=== PATIENT | male | born 1935 | race Caucasian/White ===

== ENCOUNTER → 2016-10-23 | Outpatient (CLI) | payer OTHER ==
[~2016-10-23] MED LIST: ALLO300T PO; ASPI-496 PO; CEPH-376 PO; ERGO500017 PO; HYDR-3241 PO; LOSA50TA6 PO; LUTE20TA PO; OXYC1TAB7 PO; TERA10CA3 PO; benazepril PO
== END | disposition home or self-care (01) ==
LOC: CFH 08:38
PROVIDERS: ATTEND Internal Medicine Cardiovascular Disease
DX: I08.3 Combined rheumatic disorders of mitral, aortic and tricuspid valves (principal); I10 Essential (primary) hypertension; R94.31 Abnormal electrocardiogram [ECG] [EKG]; E78.2 Mixed hyperlipidemia
CPT/HCPCS: 93306

== ENCOUNTER 2017-03-01 03:44 | Emergency (ER) | payer OTHER ==
[~2017-03-01] VITALS: Ht 175.3 cm; Wt 107.1 kg
[2017-03-01 03:51] VITALS: BP 156/68
[2017-03-01] MEDS ORDERED: LUPRON DEPOT (04:00)
[2017-03-02] MEDS ORDERED: OXYC-302 PO (16:53)
== END 2017-03-01 05:42 | disposition home or self-care (01) ==
LOC: ED 05:36
DX: R33.9 Retention of urine, unspecified (principal); I10 Essential (primary) hypertension; E50.9 Vitamin A deficiency, unspecified; I50.9 Heart failure, unspecified; Z85.46 Personal history of malignant neoplasm of prostate
CPT/HCPCS: 99284

== ENCOUNTER 2017-03-02 10:16 | Emergency (ER) | payer OTHER ==
[~2017-03-02] VITALS: Ht 175.3 cm; Wt 107.3 kg
[~2017-03-02 10:16] MED LIST changes: +LUPRON DEPOT
[2017-03-02 10:20] VITALS: BP 164/69
[2017-03-02 11:46] LABS: MICROSCOPIC INDICATED
[2017-03-02 12:02] LABS: CULTURE INDICATED? YES
[2017-03-02] MEDS ORDERED: OXYC-302 PO (16:53)
== END 2017-03-02 12:56 | disposition home or self-care (01) ==
LOC: ED 12:36
DX: N30.00 Acute cystitis without hematuria (principal); C61 Malignant neoplasm of prostate; I10 Essential (primary) hypertension; Z87.891 Personal history of nicotine dependence
CPT/HCPCS: 51702; 81001; 87077; 87086; 87186

== ENCOUNTER → 2017-05-13 | Outpatient (CLI) | payer OTHER ==
[~2017-05-13] MED LIST changes: +OMNIPAQUE 350 MG/ML, 100ML BOTTLE ONE; +OXYC-302 PO
== END | disposition home or self-care (01) ==
LOC: CFH 13:06
PROVIDERS: ATTEND Urology
DX: N28.1 Cyst of kidney, acquired (principal); C61 Malignant neoplasm of prostate
CPT/HCPCS: 74177; 82565; Q9967

== ENCOUNTER 2017-08-29 07:43 | Day surgery (SDC) | payer OTHER ==
[~2017-08-29] VITALS: Ht 175.3 cm; Wt 97.1 kg
[~2017-08-29 07:43] MED LIST changes: -OMNIPAQUE 350 MG/ML, 100ML BOTTLE ONE
[2017-08-29] MEDS ORDERED: LIDOCAINE-MPF 2% ,5ML ONE ×2 (07:56→10:59)
[2017-08-29 08:22] VITALS: BP 138/70
[2017-08-29] MEDS ORDERED: SODIUM CHLORIDE 0.9% 1,000 ML IV SCH (08:30)
[2017-08-29] MEDS ORDERED: FENTANYL PF 100 MCG/2ML ONE (10:06)
[2017-08-29] MEDS ORDERED: NALOXONE 1 MG/ML, 2ML ONE (10:07)
[2017-08-29] MEDS ORDERED: MIDAZOLAM 1 MG/ML, 5ML ONE (10:07)
[2017-08-29] MEDS ORDERED: FLUMAZENIL 0.1 MG/1 ML, 5ML ONE (10:07)
== END 2017-08-29 12:45 ==
LOC: RAD 07:43
PROVIDERS: ATTEND Urology
DX: R33.9 Retention of urine, unspecified (principal); Z87.891 Personal history of nicotine dependence; Z88.6 Allergy status to analgesic agent; Z88.8 Allergy status to other drugs, medicaments and biological substances; Z98.890 Other specified postprocedural states; Z85.46 Personal history of malignant neoplasm of prostate
CPT/HCPCS: 51102; 75989; 99156; 99157; C1725; C1769; C1894; J2250; J3010; J3490; J2310

== ENCOUNTER 2017-09-01 10:26 | Emergency (ER) | payer OTHER ==
[~2017-09-01] VITALS: Ht 175.3 cm; Wt 97.2 kg
[2017-09-01 11:34] LABS: MICROSCOPIC AUTO
[2017-09-01 11:39] LABS: CULTURE INDICATED? YES
[2017-09-01 11:40] LABS: BASOPHILS # (AUTO) 0.08 x10^3/uL (0-0.1); BASOPHILS % (AUTO) 1 % (0-1); EOSINOPHILS # (AUTO) 0.12 x10^3/uL (0-0.4); EOSINOPHILS % (AUTO) 2 % (1-7); LYMPHOCYTES # (AUTO) 1.19 x10^3/uL (1-3.4); LYMPHOCYTES % (AUTO) 15 % (22-44); MD NO; MEAN CORPUSCULAR HEMOGLOBIN 28.8 pg (27.5-34.5); MEAN CORPUSCULAR HGB CONC 33.2 g/dL (33.2-36.2); MEAN CORPUSCULAR VOLUME 86.7 fL (81-97); MEAN PLATELET VOLUME 7.9 fL (7.4-10.4); MONOCYTES # (AUTO) 0.74 x10^3/uL (0.2-0.8); MONOCYTES % (AUTO) 9 % (2-9); NEUTROPHILS % (AUTO) 74 % (42-75); PLATELET COUNT 259 x10^3/uL (130-400); RED BLOOD COUNT 3.31 x10^6/uL (4.38-5.82); RED CELL DISTRIBUTION WIDTH 16.1 % (9.4-14.8)
[2017-09-01 11:47] LABS: ALBUMIN 3.1 g/dL (3.4-5.0); ANION GAP 7 mmol/L (5-15); CHLORIDE 106 mmol/L (98-107); CREATININE 1.15 mg/dL (0.7-1.3)
[2017-09-01 12:54] VITALS: BP 124/76
== END 2017-09-01 12:56 | disposition home or self-care (01) ==
LOC: ED 11:50
DX: N30.90 Cystitis, unspecified without hematuria (principal); I11.0 Hypertensive heart disease with heart failure; I50.9 Heart failure, unspecified
CPT/HCPCS: 36415; 80048; 81001; 82040; 85025; 87077; 87086; 87186; 99284

== ENCOUNTER 2017-10-06 19:36 | Emergency (ER) | payer OTHER ==
[~2017-10-06] VITALS: Ht 175.3 cm; Wt 95.0 kg
[2017-10-06 20:40] LABS: MICROSCOPIC INDICATED
[2017-10-06 20:41] LABS: CULTURE INDICATED? YES
[2017-10-06 21:01] VITALS: BP 145/81
== END 2017-10-06 21:03 | disposition home or self-care (01) ==
LOC: ED 20:03
DX: T83.098D Other mechanical complication of other urinary catheter, subsequent encounter (principal); I11.0 Hypertensive heart disease with heart failure; I50.9 Heart failure, unspecified; Z85.46 Personal history of malignant neoplasm of prostate
CPT/HCPCS: 81001; 87077; 87086; 87186; 99284

== ENCOUNTER 2017-11-01 16:46 | Inpatient (IN) | payer OTHER ==
[~2017-11-01] VITALS: Ht 175.3 cm; Wt 92.4 kg
[~2017-11-01 16:46] MED LIST changes: -LOSA50TA6 PO; +LOSA50TA7 PO
[2017-11-01 17:27] LABS: BASOPHILS # (AUTO) 0.05 x10^3/uL (0-0.1); BASOPHILS % (AUTO) 1 % (0-1); EOSINOPHILS # (AUTO) 0.09 x10^3/uL (0-0.4); EOSINOPHILS % (AUTO) 1 % (1-7); LYMPHOCYTES # (AUTO) 1.52 x10^3/uL (1-3.4); LYMPHOCYTES % (AUTO) 15 % (22-44); MD NO; MEAN CORPUSCULAR HEMOGLOBIN 30.2 pg (27.5-34.5); MEAN CORPUSCULAR HGB CONC 34.3 g/dL (33.2-36.2); MEAN CORPUSCULAR VOLUME 88.1 fL (81-97); MEAN PLATELET VOLUME 7.5 fL (7.4-10.4); MONOCYTES # (AUTO) 0.94 x10^3/uL (0.2-0.8); MONOCYTES % (AUTO) 9 % (2-9); NEUTROPHILS # (AUTO) 7.85 x10^3/uL (1.8-6.8); NEUTROPHILS % (AUTO) 75 % (42-75); PLATELET COUNT 246 x10^3/uL (130-400); RED BLOOD COUNT 3.06 x10^6/uL (4.38-5.82); RED CELL DISTRIBUTION WIDTH 19.2 % (9.4-14.8)
[2017-11-01 17:39] LABS: ALANINE AMINOTRANSFERASE 11 U/L (12-78); ALBUMIN 2.6 g/dL (3.4-5.0); ANION GAP 7 mmol/L (5-15); CALCIUM 8.4 mg/dL (8.5-10.1); CHLORIDE 102 mmol/L (98-107); CREATININE 1.13 mg/dL (0.7-1.3)
[2017-11-01 17:44] LABS: ALKALINE PHOSPHATASE 96 U/L (45-117); BILIRUBIN,TOTAL 0.7 mg/dL (0.2-1.0); TOTAL PROTEIN 6.2 g/dL (6.4-8.2); TROPONIN I < 0.015 ng/mL (0.000-0.045)
[2017-11-01] MEDS ORDERED: SODIUM CHLORIDE 0.9%, 500ML IVBOLUS ONE (18:00)
[2017-11-01] MEDS ORDERED: SODIUM CHLORIDE FLUSH 10ML SYR IVF ONE (18:30)
[2017-11-01] MEDS ORDERED: HYDR-3245 PO (19:18)
[2017-11-01] MEDS ORDERED: ABIR250T PO (19:19)
[2017-11-01] MEDS ORDERED: PRED5TAB PO (19:19)
[2017-11-01] MEDS ORDERED: AURYXIA PO (19:19)
[2017-11-01 19:58] LABS: CULTURE INDICATED? YES
[2017-11-01] MEDS ORDERED: LIDODERM 5% PATCH TD PRN (20:00)
[2017-11-01] MEDS ORDERED: ONDANSETRON ODT 4 MG PO PRN (20:00)
[2017-11-01] MEDS ORDERED: BISACODYL 10 MG SUPP PR PRN (20:00)
[2017-11-01] MEDS ORDERED: DOCUSATE 100 MG CAPSULE PO PRN (20:00)
[2017-11-01] MEDS ORDERED: POLYETHYLENE GLYCOL 17 GM PACKET PO PRN (20:00)
[2017-11-01] MEDS ORDERED: ONDANSETRON 2MG/ML, 2ML IVPush PRN (20:00)
[2017-11-01 20:05] LABS: MICROSCOPIC INDICATED
[2017-11-01] MEDS: AURYXIA 210 MG HOMEMEDPO SCH (21:00)
[2017-11-01 21:11] VITALS: BP 136/70
[2017-11-01 21:12] VITALS: BP 127/67
[2017-11-01 21:13] VITALS: BP 120/64
[2017-11-01] MEDS: TERAZOSIN 5MG CAPSULE PO SCH (22:29)
[2017-11-01] MEDS: HEPARIN 5,000 UNITS/ML, 1ML SQ SCH (22:30)
[2017-11-01] MEDS: SODIUM CHLORIDE 0.9% 1,000 ML IV SCH (22:30)
[2017-11-01] MEDS: HYDROcodone/APAP 5/325 TABLET PO PRN (22:30)
[2017-11-01] MEDS: LOSARTAN 50MG TABLET PO SCH (22:31)
[2017-11-01] MEDS: CEFTRIAXONE 1,000 MG in SODIUM CHLORIDE 0.9% 50 ML IV SCH (22:34)
[2017-11-02] VITALS: BP 136/70
[2017-11-02 03:56] VITALS: BP_SYST 110; BP_SYST 121; BP_DIAS 63
[2017-11-02 03:57] VITALS: BP 106/54
[2017-11-02] MEDS ORDERED: ACETAMINOPHEN 500 MG TABLET PO PRN (04:00)
[2017-11-02 05:13] LABS: BASOPHILS # (AUTO) 0.02 x10^3/uL (0-0.1); BASOPHILS % (AUTO) 0 % (0-1); EOSINOPHILS # (AUTO) 0.11 x10^3/uL (0-0.4); EOSINOPHILS % (AUTO) 1 % (1-7); LYMPHOCYTES # (AUTO) 1.25 x10^3/uL (1-3.4); LYMPHOCYTES % (AUTO) 14 % (22-44); MD NO; MEAN CORPUSCULAR HEMOGLOBIN 29.4 pg (27.5-34.5); MEAN CORPUSCULAR HGB CONC 33.4 g/dL (33.2-36.2); MEAN CORPUSCULAR VOLUME 88.2 fL (81-97); MEAN PLATELET VOLUME 7.8 fL (7.4-10.4); MONOCYTES # (AUTO) 1.01 x10^3/uL (0.2-0.8); MONOCYTES % (AUTO) 12 % (2-9); NEUTROPHILS # (AUTO) 6.33 x10^3/uL (1.8-6.8); NEUTROPHILS % (AUTO) 73 % (42-75); PLATELET COUNT 224 x10^3/uL (130-400); RED BLOOD COUNT 2.76 x10^6/uL (4.38-5.82)
[2017-11-02 05:26] LABS: ANION GAP 6 mmol/L (5-15); CALCIUM 8.3 mg/dL (8.5-10.1); CHLORIDE 103 mmol/L (98-107)
[2017-11-02 05:27] LABS: % IRON SATURATION 8 % (20-55); CREATININE 1.15 mg/dL (0.7-1.3); IRON LEVEL 13 mcg/dL (65-175); TOTAL IRON BINDING CAPACITY 167 mcg/dL (250-450)
[2017-11-02] MEDS: HEPARIN 5,000 UNITS/ML, 1ML SQ SCH ×3 (06:30→22:30)
[2017-11-02 06:39] VITALS: BP 138/68
[2017-11-02] MEDS: ALLOPURINOL 300 MG TABLET PO SCH (07:55)
[2017-11-02] MEDS: TEMPLATE NON-FORMULARY MED. (Abiraterone Acetate** (Zytiga**) 1,000 MG) HOMEMEDPO SCH (07:56)
[2017-11-02] MEDS: HYDROcodone/APAP 5/325 TABLET PO PRN ×2 (07:56→17:22)
[2017-11-02] MEDS: AURYXIA 210 MG HOMEMEDPO SCH ×3 (07:56→21:39)
[2017-11-02] MEDS ORDERED: TEMPLATE NON-FORMULARY MED. (Lutein** 20 MG) PO SCH (09:00)
[2017-11-02 09:55] LABS: TROPONIN I < 0.015 ng/mL (0.000-0.045)
[2017-11-02] MEDS ORDERED: REGADENOSON 0.4 MG/5 ML SYRINGE ONE (10:50)
[2017-11-02 12:32] VITALS: BP 127/68
[2017-11-02 20:50] VITALS: BP 126/62
[2017-11-02] MEDS: LOSARTAN 50MG TABLET PO SCH (21:40)
[2017-11-02] MEDS: SODIUM CHLORIDE 0.9% 1,000 ML IV SCH (21:41)
[2017-11-02] MEDS: TERAZOSIN 5MG CAPSULE PO SCH (21:41)
[2017-11-02] MEDS: CEFTRIAXONE 1,000 MG in SODIUM CHLORIDE 0.9% 50 ML IV SCH (21:44)
[2017-11-03] MEDS: HYDROcodone/APAP 5/325 TABLET PO PRN ×2 (01:00→08:17)
[2017-11-03 01:06] VITALS: BP 146/72
[2017-11-03] MEDS: HEPARIN 5,000 UNITS/ML, 1ML SQ SCH ×2 (05:45→14:30)
[2017-11-03] MEDS: AURYXIA 210 MG HOMEMEDPO SCH (07:39)
[2017-11-03] MEDS: TEMPLATE NON-FORMULARY MED. (Abiraterone Acetate** (Zytiga**) 1,000 MG) HOMEMEDPO SCH (07:39)
[2017-11-03 07:43] VITALS: BP 150/70
[2017-11-03] MEDS: ALLOPURINOL 300 MG TABLET PO SCH (08:17)
[2017-11-03 08:51] LABS: BASOPHILS # (AUTO) 0.02 x10^3/uL (0-0.1); BASOPHILS % (AUTO) 0 % (0-1); EOSINOPHILS # (AUTO) 0.16 x10^3/uL (0-0.4); EOSINOPHILS % (AUTO) 2 % (1-7); LYMPHOCYTES # (AUTO) 1.09 x10^3/uL (1-3.4); LYMPHOCYTES % (AUTO) 15 % (22-44); MD NO; MEAN CORPUSCULAR HEMOGLOBIN 29.5 pg (27.5-34.5); MEAN CORPUSCULAR HGB CONC 33.3 g/dL (33.2-36.2); MEAN CORPUSCULAR VOLUME 88.5 fL (81-97); MEAN PLATELET VOLUME 7.6 fL (7.4-10.4); MONOCYTES # (AUTO) 0.63 x10^3/uL (0.2-0.8); MONOCYTES % (AUTO) 9 % (2-9); NEUTROPHILS # (AUTO) 5.49 x10^3/uL (1.8-6.8); NEUTROPHILS % (AUTO) 74 % (42-75); PLATELET COUNT 241 x10^3/uL (130-400); RED BLOOD COUNT 3.03 x10^6/uL (4.38-5.82); RED CELL DISTRIBUTION WIDTH 19.2 % (9.4-14.8)
[2017-11-03] MEDS ORDERED: CEFD300C37 PO (11:41)
[2017-11-03 13:30] VITALS: BP 125/63
== END 2017-11-03 15:13 | disposition home or self-care (01) | DRG 698 ==
LOC: ED 19:03 → 5SO 19:39 → ED 20:26 → 5SO 20:34
PROVIDERS: ADMIT Family Medicine; ATTEND Family Medicine
PROC: 0T9B70Z Drainage of Bladder with Drainage Device, Via Natural or Artificial Opening (ICD-10-PCS; principal; 2017-11-01)
DX: T83.511A Infection and inflammatory reaction due to indwelling urethral catheter, initial encounter (principal); E43 Unspecified severe protein-calorie malnutrition; E87.1 Hypo-osmolality and hyponatremia; G89.29 Other chronic pain; E86.0 Dehydration; I11.0 Hypertensive heart disease with heart failure; I50.9 Heart failure, unspecified; K59.00 Constipation, unspecified; T45.1X5A Adverse effect of antineoplastic and immunosuppressive drugs, initial encounter; C61 Malignant neoplasm of prostate; E87.5 Hyperkalemia; M54.9 Dorsalgia, unspecified; D64.9 Anemia, unspecified; Y84.6 Urinary catheterization as the cause of abnormal reaction of the patient, or of later complication, without mention of misadventure at the time of the procedure; W18.39XA Other fall on same level, initial encounter; R55 Syncope and collapse; R07.89 Other chest pain; Y93.01 Activity, walking, marching and hiking; R53.81 Other malaise; Z88.0 Allergy status to penicillin; Z88.8 Allergy status to other drugs, medicaments and biological substances; Y99.8 Other external cause status; Y92.89 Other specified places as the place of occurrence of the external cause; Z85.46 Personal history of malignant neoplasm of prostate; Z87.440 Personal history of urinary (tract) infections
CPT/HCPCS: 36415; 71045; 78452; 80048; 80053; 81001; 82728; 83540; 83550; 83880; 84484; 85025; 87077; 87086; 87186; 93005; 93017; 93306; 96360; 99285; G0378; J0696; J1644; J2785; A9502; J7030; J7040; J7512

== ENCOUNTER 2017-11-19 08:37 | Inpatient (IN) | payer OTHER ==
[~2017-11-19] VITALS: Ht 175.3 cm; Wt 103.0 kg
[~2017-11-19 08:37] MED LIST changes: +ABIR250T PO; +AURYXIA PO; +CEFD300C37 PO; +HYDR-3245 PO; +PRED5TAB PO
[2017-11-19] MEDS ORDERED: SODIUM CHLORIDE 0.9%, 500ML IVBOLUS ONE (09:30)
[2017-11-19 09:39] LABS: BASOPHILS # (AUTO) 0.03 x10^3/uL (0-0.1); BASOPHILS % (AUTO) 0 % (0-1); EOSINOPHILS # (AUTO) 0.05 x10^3/uL (0-0.4); EOSINOPHILS % (AUTO) 0 % (1-7); LYMPHOCYTES # (AUTO) 0.56 x10^3/uL (1-3.4); LYMPHOCYTES % (AUTO) 5 % (22-44); MD NO; MEAN CORPUSCULAR HGB CONC 33.3 g/dL (33.2-36.2); MEAN CORPUSCULAR VOLUME 90.1 fL (81-97); MEAN PLATELET VOLUME 7.3 fL (7.4-10.4); MONOCYTES # (AUTO) 0.95 x10^3/uL (0.2-0.8); MONOCYTES % (AUTO) 8 % (2-9); NEUTROPHILS # (AUTO) 10.87 x10^3/uL (1.8-6.8); NEUTROPHILS % (AUTO) 87 % (42-75); PLATELET COUNT 256 x10^3/uL (130-400); RED BLOOD COUNT 2.95 x10^6/uL (4.38-5.82); RED CELL DISTRIBUTION WIDTH 18.3 % (9.4-14.8)
[2017-11-19 09:52] LABS: ALANINE AMINOTRANSFERASE 12 U/L (12-78); ALBUMIN 2.5 g/dL (3.4-5.0); ANION GAP 8 mmol/L (5-15); CALCIUM 8.5 mg/dL (8.5-10.1); CHLORIDE 106 mmol/L (98-107); CREATININE 1.79 mg/dL (0.7-1.3)
[2017-11-19 09:54] LABS: ALKALINE PHOSPHATASE 116 U/L (45-117); BILIRUBIN,TOTAL 0.8 mg/dL (0.2-1.0); TOTAL PROTEIN 6.1 g/dL (6.4-8.2)
[2017-11-19 10:31] LABS: MICROSCOPIC INDICATED
[2017-11-19 10:36] LABS: CULTURE INDICATED? YES
[2017-11-19] MEDS ORDERED: CEFTRIAXONE 1,000 MG IM ONE (11:30)
[2017-11-19] MEDS ORDERED: SODIUM CHLORIDE 0.9% 1,000 ML IV SCH (11:46)
[2017-11-19] MEDS ORDERED: hydrALAzine 20 MG/ML, 1ML IVPush PRN (12:00)
[2017-11-19] MEDS ORDERED: HEPARIN 5,000 UNITS/ML, 1ML SQ SCH (12:00)
[2017-11-19] MEDS ORDERED: BISACODYL 10 MG SUPP PR PRN (12:00)
[2017-11-19] MEDS ORDERED: POLYETHYLENE GLYCOL 17 GM PACKET PO PRN (12:00)
[2017-11-19 12:02] VITALS: BP 120/63
[2017-11-19] MEDS ORDERED: PLEASE ENTER WEIGHT MC SCH (12:30)
[2017-11-19] MEDS: SULFAMETH./TRIMETHOPRIM DS 800MG/160MG TABLET PO SCH ×2 (15:24→21:40)
[2017-11-19] MEDS: LINEZOLID 600 MG TABLET PO SCH ×2 (15:24→21:40)
[2017-11-19] MEDS: AURYXIA 210 MG PO SCH ×2 (16:00→21:00)
[2017-11-19] MEDS: ENOXAPARIN 100 MG/ML SQ SCH (17:20)
[2017-11-19] MEDS: HYDROcodone/APAP 10/325 MG TABLET PO PRN (18:01)
[2017-11-19 18:45] VITALS: BP 117/68
[2017-11-19] MEDS: LACTULOSE 10 GM/15 ML UDC PO SCH (21:39)
[2017-11-19] MEDS: TERAZOSIN 5MG CAPSULE PO SCH (21:39)
[2017-11-19] MEDS: LOSARTAN 50MG TABLET PO SCH (21:40)
[2017-11-20] VITALS (8 sets, daily range): BP systolic 95–120; BP diastolic 54–73
[2017-11-20] MEDS: HYDROcodone/APAP 10/325 MG TABLET PO PRN ×3 (04:48→17:40)
[2017-11-20] MEDS: ENOXAPARIN 100 MG/ML SQ SCH ×2 (04:52→17:17)
[2017-11-20 05:43] LABS: BASOPHILS # (AUTO) 0.02 x10^3/uL (0-0.1); BASOPHILS % (AUTO) 0 % (0-1); EOSINOPHILS # (AUTO) 0.04 x10^3/uL (0-0.4); EOSINOPHILS % (AUTO) 0 % (1-7); LYMPHOCYTES # (AUTO) 0.92 x10^3/uL (1-3.4); LYMPHOCYTES % (AUTO) 8 % (22-44); MD NO; MEAN CORPUSCULAR HEMOGLOBIN 29.9 pg (27.5-34.5); MEAN CORPUSCULAR HGB CONC 33.4 g/dL (33.2-36.2); MEAN CORPUSCULAR VOLUME 89.5 fL (81-97); MEAN PLATELET VOLUME 7.4 fL (7.4-10.4); MONOCYTES # (AUTO) 1.01 x10^3/uL (0.2-0.8); MONOCYTES % (AUTO) 9 % (2-9); NEUTROPHILS # (AUTO) 9.31 x10^3/uL (1.8-6.8); NEUTROPHILS % (AUTO) 82 % (42-75); PLATELET COUNT 233 x10^3/uL (130-400); RED BLOOD COUNT 2.57 x10^6/uL (4.38-5.82); RED CELL DISTRIBUTION WIDTH 18.5 % (9.4-14.8)
[2017-11-20 05:51] LABS: CHLORIDE 106 mmol/L (98-107)
[2017-11-20 05:59] LABS: ALANINE AMINOTRANSFERASE 10 U/L (12-78); ALBUMIN 2.2 g/dL (3.4-5.0); ALKALINE PHOSPHATASE 104 U/L (45-117); ANION GAP 12 mmol/L (5-15); BILIRUBIN,TOTAL 0.5 mg/dL (0.2-1.0); CALCIUM 8.3 mg/dL (8.5-10.1); CREATININE 1.77 mg/dL (0.7-1.3); TOTAL PROTEIN 5.9 g/dL (6.4-8.2)
[2017-11-20] MEDS ORDERED: PANTOPRAZOLE 40 MG IV IVPush SCH (07:30)
[2017-11-20] MEDS: PANTOPROZOLE 40MG TABLET PO SCH (08:15)
[2017-11-20] MEDS: AURYXIA 210 MG PO SCH ×3 (08:15→21:00)
[2017-11-20] MEDS: TEMPLATE NON-FORMULARY MED. (Abiraterone Acetate** (Zytiga**) 1,000 MG) PO SCH (08:15)
[2017-11-20] MEDS: LINEZOLID 600 MG TABLET PO SCH ×2 (08:16→19:47)
[2017-11-20] MEDS: LACTULOSE 10 GM/15 ML UDC PO SCH ×2 (08:16→19:47)
[2017-11-20] MEDS: SULFAMETH./TRIMETHOPRIM DS 800MG/160MG TABLET PO SCH ×2 (08:16→19:47)
[2017-11-20] MEDS: SENNA/DOCUSATE TABLET PO SCH (08:16)
[2017-11-20] MEDS ORDERED: TEMPLATE NON-FORMULARY MED. (Lutein** 20 MG) PO SCH (09:00)
[2017-11-20] MEDS: SODIUM CHLORIDE 0.9% 1,000 ML IV SCH (10:33)
[2017-11-20] MEDS ORDERED: SODIUM CHLORIDE 0.9% 1,000 ML IV SCH (11:46)
[2017-11-20] MEDS: TERAZOSIN 5MG CAPSULE PO SCH (19:47)
[2017-11-20] MEDS: LOSARTAN 50MG TABLET PO SCH (19:47)
[2017-11-21 01:57] VITALS: BP 130/70
[2017-11-21] MEDS: HYDROcodone/APAP 10/325 MG TABLET PO PRN ×4 (01:59→21:02)
[2017-11-21] MEDS: SODIUM CHLORIDE 0.9% 1,000 ML IV SCH ×2 (02:00→12:27)
[2017-11-21 02:26] VITALS: BP 123/64
[2017-11-21 04:40] LABS: BASOPHILS # (AUTO) 0.02 x10^3/uL (0-0.1); BASOPHILS % (AUTO) 0 % (0-1); EOSINOPHILS # (AUTO) 0.11 x10^3/uL (0-0.4); EOSINOPHILS % (AUTO) 1 % (1-7); LYMPHOCYTES # (AUTO) 0.72 x10^3/uL (1-3.4); LYMPHOCYTES % (AUTO) 8 % (22-44); MD NO; MEAN CORPUSCULAR HEMOGLOBIN 29.9 pg (27.5-34.5); MEAN CORPUSCULAR HGB CONC 33.3 g/dL (33.2-36.2); MEAN CORPUSCULAR VOLUME 89.9 fL (81-97); MONOCYTES # (AUTO) 0.79 x10^3/uL (0.2-0.8); MONOCYTES % (AUTO) 8 % (2-9); NEUTROPHILS # (AUTO) 7.96 x10^3/uL (1.8-6.8); NEUTROPHILS % (AUTO) 83 % (42-75); PLATELET COUNT 211 x10^3/uL (130-400); RED BLOOD COUNT 2.62 x10^6/uL (4.38-5.82); RED CELL DISTRIBUTION WIDTH 18.1 % (9.4-14.8)
[2017-11-21 04:51] LABS: ALBUMIN 2.1 g/dL (3.4-5.0); ANION GAP 8 mmol/L (5-15); CALCIUM 8.3 mg/dL (8.5-10.1); CHLORIDE 110 mmol/L (98-107)
[2017-11-21] MEDS: ENOXAPARIN 100 MG/ML SQ SCH ×2 (04:54→18:01)
[2017-11-21 04:55] LABS: ALANINE AMINOTRANSFERASE 9 U/L (12-78); ALKALINE PHOSPHATASE 97 U/L (45-117); BILIRUBIN,TOTAL 0.5 mg/dL (0.2-1.0); CREATININE 1.86 mg/dL (0.7-1.3); TOTAL PROTEIN 5.7 g/dL (6.4-8.2)
[2017-11-21] MEDS: MORPHINE SULFATE 4 MG/ML, 1ML IV PRN ×2 (04:59→12:35)
[2017-11-21] MEDS: PANTOPROZOLE 40MG TABLET PO SCH (07:54)
[2017-11-21] MEDS: LINEZOLID 600 MG TABLET PO SCH ×2 (07:54→21:02)
[2017-11-21] MEDS: LACTULOSE 10 GM/15 ML UDC PO SCH ×2 (07:54→21:04)
[2017-11-21] MEDS: SULFAMETH./TRIMETHOPRIM DS 800MG/160MG TABLET PO SCH ×2 (07:54→21:02)
[2017-11-21] MEDS: SENNA/DOCUSATE TABLET PO SCH (07:55)
[2017-11-21] MEDS: TEMPLATE NON-FORMULARY MED. (Abiraterone Acetate** (Zytiga**) 1,000 MG) PO SCH (08:00)
[2017-11-21] MEDS: AURYXIA 210 MG PO SCH ×3 (08:00→21:04)
[2017-11-21 08:27] VITALS: BP 153/72
[2017-11-21 12:29] VITALS: BP 144/70
[2017-11-21 20:27] VITALS: BP 129/66
[2017-11-21] MEDS: TERAZOSIN 5MG CAPSULE PO SCH (21:03)
[2017-11-21] MEDS: LOSARTAN 50MG TABLET PO SCH (21:04)
[2017-11-22 03:04] VITALS: BP 113/69
[2017-11-22] MEDS: MORPHINE SULFATE 4 MG/ML, 1ML IV PRN ×3 (04:19→16:25)
[2017-11-22] MEDS: HYDROcodone/APAP 10/325 MG TABLET PO PRN ×2 (05:14→15:32)
[2017-11-22] MEDS: TEMPLATE NON-FORMULARY MED. (Abiraterone Acetate** (Zytiga**) 1,000 MG) HOMEMEDPO SCH ×2 (05:15→09:00)
[2017-11-22] MEDS: ENOXAPARIN 100 MG/ML SQ SCH (05:16)
[2017-11-22 06:27] LABS: MD YES; MEAN CORPUSCULAR HEMOGLOBIN 30.1 pg (27.5-34.5); MEAN CORPUSCULAR HGB CONC 33.4 g/dL (33.2-36.2); MEAN CORPUSCULAR VOLUME 90.1 fL (81-97); MEAN PLATELET VOLUME 7.1 fL (7.4-10.4); PLATELET COUNT 219 x10^3/uL (130-400); RED BLOOD COUNT 2.62 x10^6/uL (4.38-5.82); RED CELL DISTRIBUTION WIDTH 18.1 % (9.4-14.8)
[2017-11-22 06:36] LABS: ANION GAP 9 mmol/L (5-15); CALCIUM 8.2 mg/dL (8.5-10.1); CHLORIDE 110 mmol/L (98-107); CREATININE 1.61 mg/dL (0.7-1.3)
[2017-11-22 06:47] VITALS: BP_SYST 106; BP_DIAS 59; BP_DIAS 61
[2017-11-22 07:17] LABS: BASOS#(MANUAL) 0.07 x10^3/uL (0-0.1); BASOS% (MANUAL) 1 % (0-1); EOS#(MANUAL) 0.07 x10^3/uL (0.0-0.4); EOS% (MANUAL) 1 % (1-7); LYMPH#(MANUAL) 0.51 x10^3/uL (1-3.4); LYMPHS% (MANUAL) 7 % (22-44); MONOS#(MANUAL) 0.58 x10^3/uL (0.3-2.7); MONOS% (MANUAL) 8 % (2-9); SEG#(MANUAL) 6.06 x10^3/uL (1.8-6.8); SEGS% (MANUAL) 83 % (42-75)
[2017-11-22 07:18] LABS: <PLATELET ESTIMATE> ADEQUATE; <PLT MORPHOLOGY> NORMAL PLT MORPH; ANISOCYTOSIS 1+; OVALOCYTES 1+
[2017-11-22 07:19] LABS: TOXIC GRAN 1+
[2017-11-22] MEDS: AURYXIA 210 MG PO SCH ×2 (09:00→15:31)
[2017-11-22] MEDS: LINEZOLID 600 MG TABLET PO SCH (09:47)
[2017-11-22] MEDS: SENNA/DOCUSATE TABLET PO SCH (09:47)
[2017-11-22] MEDS: SULFAMETH./TRIMETHOPRIM DS 800MG/160MG TABLET PO SCH (09:47)
[2017-11-22] MEDS: PANTOPROZOLE 40MG TABLET PO SCH (09:47)
[2017-11-22] MEDS: LACTULOSE 10 GM/15 ML UDC PO SCH (09:47)
[2017-11-22] MEDS ORDERED: SODIUM CHLORIDE 0.9% 1,000 ML IV SCH (11:46)
[2017-11-22 12:52] VITALS: BP 135/71
[2017-11-22 13:59] VITALS: BP 133/67
[2017-11-22 14:18] VITALS: BP 145/73
[2017-11-22 16:17] VITALS: BP 125/66
[2017-11-22] MEDS ORDERED: APIXABAN 5 MG TABLET PO SCH (21:00)
== END 2017-11-22 17:00 | DRG 698 ==
LOC: ED 10:43 → EDIP 11:05 → 3NE 11:50 → 3NW 11-20 17:29
PROVIDERS: ADMIT Family Medicine; ATTEND Family Medicine
PROC: 30233N1 Transfusion of Nonautologous Red Blood Cells into Peripheral Vein, Percutaneous Approach (ICD-10-PCS; principal; 2017-11-20)
DX: T83.518A Infection and inflammatory reaction due to other urinary catheter, initial encounter (principal); G93.41 Metabolic encephalopathy; N17.9 Acute kidney failure, unspecified; C79.51 Secondary malignant neoplasm of bone; N39.0 Urinary tract infection, site not specified; I82.412 Acute embolism and thrombosis of left femoral vein; C61 Malignant neoplasm of prostate; D63.8 Anemia in other chronic diseases classified elsewhere; Z87.440 Personal history of urinary (tract) infections; I50.9 Heart failure, unspecified; N13.9 Obstructive and reflux uropathy, unspecified; Y84.6 Urinary catheterization as the cause of abnormal reaction of the patient, or of later complication, without mention of misadventure at the time of the procedure; Y92.89 Other specified places as the place of occurrence of the external cause; D50.9 Iron deficiency anemia, unspecified; E78.5 Hyperlipidemia, unspecified; E86.0 Dehydration; E86.1 Hypovolemia; G89.29 Other chronic pain; I11.0 Hypertensive heart disease with heart failure; Z80.9 Family history of malignant neoplasm, unspecified; Z82.49 Family history of ischemic heart disease and other diseases of the circulatory system; Z51.5 Encounter for palliative care; Z66 Do not resuscitate; Z74.01 Bed confinement status; Z88.0 Allergy status to penicillin; Z96.659 Presence of unspecified artificial knee joint; Z88.6 Allergy status to analgesic agent; B95.2 Enterococcus as the cause of diseases classified elsewhere; R10.9 Unspecified abdominal pain
CPT/HCPCS: 36415; 71045; 76705; 76770; 80048; 80053; 81001; 83605; 85025; 86850; 86870; 86900; 86922; 86923; 87086; 93005; 93970; 99285; G0378; J1644; J1650; J7030; J7040; J7512; P9016

== ENCOUNTER 2017-12-12 03:15 | Inpatient (IN) | payer OTHER ==
[~2017-12-12] VITALS: Ht 175.3 cm; Wt 102.9 kg
[2017-12-12] MEDS ORDERED: MORPHINE SULFATE 4 MG/ML, 1ML ONE ×2 (03:59→04:55)
[2017-12-12] MEDS ORDERED: SODIUM CHLORIDE FLUSH 10ML SYR IVF ONE (04:00)
[2017-12-12] MEDS: MORPHINE SULFATE 4 MG/ML, 1ML IVPush PRN ×4 (04:07→12:27)
[2017-12-12 04:16] LABS: BASOPHILS % (AUTO) 0 % (0-1); EOSINOPHILS % (AUTO) 0 % (1-7); LYMPHOCYTES # (AUTO) 0.48 x10^3/uL (1-3.4); LYMPHOCYTES % (AUTO) 4 % (22-44); MD NO; MEAN CORPUSCULAR HEMOGLOBIN 29.5 pg (27.5-34.5); MEAN CORPUSCULAR VOLUME 89.4 fL (81-97); MEAN PLATELET VOLUME 7.6 fL (7.4-10.4); MONOCYTES # (AUTO) 0.88 x10^3/uL (0.2-0.8); MONOCYTES % (AUTO) 7 % (2-9); NEUTROPHILS % (AUTO) 90 % (42-75); PLATELET COUNT 371 x10^3/uL (130-400); RED BLOOD COUNT 2.88 x10^6/uL (4.38-5.82); RED CELL DISTRIBUTION WIDTH 17.2 % (9.4-14.8)
[2017-12-12 04:24] LABS: INTERNATIONAL NORMALIZED RATIO 1.11 (0.93-1.1); PROTHROMBIN TIME 11.4 Seconds (9.6-11.5)
[2017-12-12 04:33] LABS: ALBUMIN 2.5 g/dL (3.4-5.0); ANION GAP 7 mmol/L (5-15); CALCIUM 9.3 mg/dL (8.5-10.1); CHLORIDE 104 mmol/L (98-107)
[2017-12-12 04:37] LABS: ALANINE AMINOTRANSFERASE 15 U/L (12-78); ALKALINE PHOSPHATASE 109 U/L (45-117); BILIRUBIN,TOTAL 0.3 mg/dL (0.2-1.0); CREATININE 1.93 mg/dL (0.7-1.3); TOTAL PROTEIN 6.9 g/dL (6.4-8.2)
[2017-12-12] MEDS ORDERED: APIX5TAB PO (05:06)
[2017-12-12] MEDS ORDERED: DICL100T PO (05:06)
[2017-12-12] MEDS ORDERED: SODIUM CHLORIDE 0.9% 1,000 ML IV ONE (05:36)
[2017-12-12] MEDS ORDERED: ONDANSETRON 2MG/ML, 2ML IVPush PRN ×2 (06:00→06:30)
[2017-12-12] MEDS: SODIUM CHLORIDE 0.9% 1,000 ML IV SCH ×2 (06:17→16:17)
[2017-12-12] MEDS ORDERED: BISACODYL 10 MG SUPP PR PRN (06:30)
[2017-12-12] MEDS ORDERED: POLYETHYLENE GLYCOL 17 GM PACKET PO PRN (06:30)
[2017-12-12] MEDS ORDERED: ONDANSETRON ODT 4 MG PO PRN (06:30)
[2017-12-12] MEDS ORDERED: ENALAPRILAT 1.25 MG/ML, 2ML IVPush PRN (06:30)
[2017-12-12] MEDS ORDERED: ACETAMINOPHEN 325 MG TABLET PO PRN (06:30)
[2017-12-12] MEDS: SENNA/DOCUSATE TABLET PO SCH (09:00)
[2017-12-12] MEDS: ABIRATERONE ACETATE 1000 MG PO SCH (09:00)
[2017-12-12] MEDS: ALLOPURINOL 300 MG TABLET PO SCH (09:00)
[2017-12-12 13:12] VITALS: BP 113/58
[2017-12-12] MEDS ORDERED: FENTANYL PF 100 MCG/2ML ONE ×3 (14:37→17:15)
[2017-12-12] MEDS ORDERED: NEOSPORIN OINT, 15GM ONE (14:43)
[2017-12-12] MEDS ORDERED: HYDROCORTISONE 100 MG INJ. ONE (14:56)
[2017-12-12] MEDS ORDERED: CLINDAMYCIN 150 MG/ML, 6ML ONE (14:56)
[2017-12-12] MEDS ORDERED: hydrALAzine 20 MG/ML, 1ML IV PRN (15:00)
[2017-12-12] MEDS ORDERED: MEPERIDINE/PF 25MG/0.5ML IVPush PRN (15:00)
[2017-12-12] MEDS ORDERED: OXYcodone 5 MG/5 ML ORAL.SOL UDC PO PRN (15:00)
[2017-12-12] MEDS ORDERED: PROCHLORPERAZINE 5 MG/ML, 2ML IV PRN (15:00)
[2017-12-12] MEDS ORDERED: LABETALOL 5MG/ML, 20ML IV PRN (15:00)
[2017-12-12] MEDS ORDERED: PHENYLEPHRINE 10 MG/ML ONE (15:28)
[2017-12-12] MEDS ORDERED: ROCURONIUM 10MG/ML,5ML ONE (15:28)
[2017-12-12] MEDS ORDERED: SUCCINYLCHOLINE 20 MG/ML, 10ML ONE (15:28)
[2017-12-12] MEDS ORDERED: ONDANSETRON 2MG/ML, 2ML ONE (15:28)
[2017-12-12] MEDS ORDERED: EPHEDRINE 50 MG/ML, 1ML ONE (15:28)
[2017-12-12] MEDS ORDERED: SUGAMMADEX 200 MG/2 ML IVPush ONE (15:28)
[2017-12-12] MEDS ORDERED: CEFAZOLIN PMX 1GM/50ML 50 ML IV SCH (16:30)
[2017-12-12] MEDS ORDERED: OXYcodone 5 MG/5 ML ORAL.SOL UDC ONE (16:34)
[2017-12-12] MEDS: FENTANYL PF 100 MCG/2ML IV PRN ×4 (16:37→17:34)
[2017-12-12] MEDS ORDERED: HYDROmorphone 2 MG/ML, 1ML ONE ×2 (16:45→17:15)
[2017-12-12] MEDS: HYDROmorphone 1 MG/ML, 1ML IV PRN ×4 (16:47→17:14)
[2017-12-12] MEDS ORDERED: METHADONE INTENSOL 10 MG/ML ORAL CONC PO ONE (17:30)
[2017-12-12 18:27] VITALS: BP 94/58
[2017-12-12] MEDS: HYDROcodone/APAP 5/325 TABLET PO PRN (20:56)
[2017-12-12] MEDS: TERAZOSIN 5MG CAPSULE PO SCH (21:00)
[2017-12-12] MEDS: LOSARTAN 50MG TABLET PO SCH (21:00)
[2017-12-12 22:24] VITALS: BP 95/56
[2017-12-12 22:37] VITALS: BP 93/55
[2017-12-13] VITALS (10 sets, daily range): BP systolic 93–124; BP diastolic 46–71
[2017-12-13] MEDS: CLINDAMYCIN PMX 300MG/50ML 50 ML IV SCH ×2 (01:08→08:52)
[2017-12-13] MEDS: SODIUM CHLORIDE 0.9% 1,000 ML IV SCH ×2 (01:16→12:55)
[2017-12-13 05:18] LABS: MEAN CORPUSCULAR HGB CONC 32.8 g/dL (33.2-36.2); MEAN CORPUSCULAR VOLUME 91.5 fL (81-97); MEAN PLATELET VOLUME 7.7 fL (7.4-10.4); PLATELET COUNT 276 x10^3/uL (130-400); RED BLOOD COUNT 2.39 x10^6/uL (4.38-5.82); RED CELL DISTRIBUTION WIDTH 17.4 % (9.4-14.8)
[2017-12-13 05:20] LABS: ANION GAP 7 mmol/L (5-15); CALCIUM 8.6 mg/dL (8.5-10.1); CHLORIDE 107 mmol/L (98-107)
[2017-12-13] MEDS: HYDROcodone/APAP 5/325 TABLET PO PRN ×5 (05:23→23:52)
[2017-12-13 06:01] LABS: BASOPHILS # (AUTO) 0.01 x10^3/uL (0-0.1); BASOPHILS % (AUTO) 0 % (0-1); EOSINOPHILS % (AUTO) 0 % (1-7); LYMPHOCYTES # (AUTO) 0.68 x10^3/uL (1-3.4); LYMPHOCYTES % (AUTO) 6 % (22-44); MD SCAN; MONOCYTES # (AUTO) 0.86 x10^3/uL (0.2-0.8); MONOCYTES % (AUTO) 7 % (2-9); NEUTROPHILS # (AUTO) 10.93 x10^3/uL (1.8-6.8); NEUTROPHILS % (AUTO) 88 % (42-75)
[2017-12-13] MEDS: ALLOPURINOL 300 MG TABLET PO SCH (08:36)
[2017-12-13] MEDS: SENNA/DOCUSATE TABLET PO SCH (08:37)
[2017-12-13] MEDS: ABIRATERONE ACETATE 1000 MG PO SCH ×2 (08:53→11:09)
[2017-12-13] MEDS: APIXABAN 2.5 MG TABLET PO SCH ×2 (11:30→19:59)
[2017-12-13 15:13] LABS: CULTURE INDICATED? YES; MICROSCOPIC INDICATED
[2017-12-13 18:43] LABS: MD NO
[2017-12-13 18:47] LABS: ANION GAP 8 mmol/L (5-15); CALCIUM 8.4 mg/dL (8.5-10.1); CHLORIDE 104 mmol/L (98-107); CREATININE 1.86 mg/dL (0.7-1.3)
[2017-12-13 18:48] LABS: BASOPHILS # (AUTO) 0.03 x10^3/uL (0-0.1); BASOPHILS % (AUTO) 0 % (0-1); EOSINOPHILS # (AUTO) 0.01 x10^3/uL (0-0.4); EOSINOPHILS % (AUTO) 0 % (1-7); LYMPHOCYTES # (AUTO) 0.63 x10^3/uL (1-3.4); LYMPHOCYTES % (AUTO) 4 % (22-44); MEAN CORPUSCULAR HEMOGLOBIN 30.8 pg (27.5-34.5); MEAN CORPUSCULAR HGB CONC 33.7 g/dL (33.2-36.2); MEAN CORPUSCULAR VOLUME 91.3 fL (81-97); MEAN PLATELET VOLUME 7.5 fL (7.4-10.4); MONOCYTES % (AUTO) 7 % (2-9); NEUTROPHILS # (AUTO) 13.66 x10^3/uL (1.8-6.8); NEUTROPHILS % (AUTO) 89 % (42-75); PLATELET COUNT 280 x10^3/uL (130-400); RED BLOOD COUNT 2.67 x10^6/uL (4.38-5.82); RED CELL DISTRIBUTION WIDTH 17.1 % (9.4-14.8)
[2017-12-13] MEDS: TERAZOSIN 5MG CAPSULE PO SCH (19:59)
[2017-12-13] MEDS: LOSARTAN 50MG TABLET PO SCH (20:00)
[2017-12-14 00:17] VITALS: BP 110/66
[2017-12-14 05:25] LABS: ANION GAP 6 mmol/L (5-15); CALCIUM 8.3 mg/dL (8.5-10.1); CHLORIDE 106 mmol/L (98-107); CREATININE 1.81 mg/dL (0.7-1.3)
[2017-12-14 05:35] LABS: MEAN CORPUSCULAR HEMOGLOBIN 30.7 pg (27.5-34.5); MEAN CORPUSCULAR VOLUME 90.2 fL (81-97); PLATELET COUNT 254 x10^3/uL (130-400); RED BLOOD COUNT 2.45 x10^6/uL (4.38-5.82); RED CELL DISTRIBUTION WIDTH 17.6 % (9.4-14.8)
[2017-12-14 06:07] LABS: BASOPHILS # (AUTO) 0.08 x10^3/uL (0-0.1); BASOPHILS % (AUTO) 1 % (0-1); EOSINOPHILS # (AUTO) 0.02 x10^3/uL (0-0.4); EOSINOPHILS % (AUTO) 0 % (1-7); LYMPHOCYTES # (AUTO) 0.82 x10^3/uL (1-3.4); LYMPHOCYTES % (AUTO) 6 % (22-44); MD SCAN; MONOCYTES # (AUTO) 0.98 x10^3/uL (0.2-0.8); MONOCYTES % (AUTO) 7 % (2-9); NEUTROPHILS # (AUTO) 11.62 x10^3/uL (1.8-6.8); NEUTROPHILS % (AUTO) 86 % (42-75)
[2017-12-14 07:17] VITALS: BP 122/64
[2017-12-14] MEDS: SENNA/DOCUSATE TABLET PO SCH (08:57)
[2017-12-14] MEDS: SULFAMETH./TRIMETHOPRIM DS 800MG/160MG TABLET PO SCH ×2 (08:58→21:12)
[2017-12-14] MEDS: APIXABAN 2.5 MG TABLET PO SCH ×2 (08:58→21:13)
[2017-12-14] MEDS: ALLOPURINOL 300 MG TABLET PO SCH (08:58)
[2017-12-14] MEDS: ABIRATERONE ACETATE 1000 MG PO SCH (09:01)
[2017-12-14] MEDS: morphine SULFATE 10 MG/ML, 1ML IVPush PRN (09:01)
[2017-12-14] MEDS: SODIUM CHLORIDE 0.9% 1,000 ML IV SCH (09:05)
[2017-12-14] MEDS: HYDROcodone/APAP 5/325 TABLET PO PRN ×2 (11:08→21:12)
[2017-12-14 12:45] VITALS: BP 107/52
[2017-12-14 19:10] VITALS: BP_SYST 135; BP_SYST 98; BP_DIAS 51; BP_DIAS 65
[2017-12-14 21:10] VITALS: BP 109/59
[2017-12-14] MEDS: TERAZOSIN 5MG CAPSULE PO SCH (21:12)
[2017-12-14 23:44] VITALS: BP 115/53
[2017-12-14] MEDS: LOSARTAN 50MG TABLET PO SCH (23:48)
[2017-12-15] VITALS (10 sets, daily range): BP systolic 95–127; BP diastolic 47–70
[2017-12-15 05:09] LABS: ANION GAP 7 mmol/L (5-15); CALCIUM 8.2 mg/dL (8.5-10.1); CHLORIDE 104 mmol/L (98-107); CREATININE 1.83 mg/dL (0.7-1.3); MEAN CORPUSCULAR HEMOGLOBIN 31.7 pg (27.5-34.5); MEAN CORPUSCULAR HGB CONC 34.7 g/dL (33.2-36.2); MEAN CORPUSCULAR VOLUME 91.4 fL (81-97); MEAN PLATELET VOLUME 7.9 fL (7.4-10.4); PLATELET COUNT 220 x10^3/uL (130-400); RED BLOOD COUNT 2.15 x10^6/uL (4.38-5.82); RED CELL DISTRIBUTION WIDTH 17.5 % (9.4-14.8)
[2017-12-15] MEDS: SODIUM CHLORIDE 0.9% 1,000 ML IV SCH (05:22)
[2017-12-15] MEDS: HYDROcodone/APAP 5/325 TABLET PO PRN ×3 (05:22→21:01)
[2017-12-15 05:28] LABS: BASOPHILS # (AUTO) 0.01 x10^3/uL (0-0.1); BASOPHILS % (AUTO) 0 % (0-1); EOSINOPHILS # (AUTO) 0.08 x10^3/uL (0-0.4); EOSINOPHILS % (AUTO) 1 % (1-7); LYMPHOCYTES # (AUTO) 0.83 x10^3/uL (1-3.4); LYMPHOCYTES % (AUTO) 6 % (22-44); MD SCAN; MONOCYTES # (AUTO) 0.99 x10^3/uL (0.2-0.8); MONOCYTES % (AUTO) 7 % (2-9); NEUTROPHILS # (AUTO) 12.71 x10^3/uL (1.8-6.8); NEUTROPHILS % (AUTO) 87 % (42-75)
[2017-12-15 07:36] LABS: INTERNATIONAL NORMALIZED RATIO 1.09 (0.93-1.1); PROTHROMBIN TIME 11.2 Seconds (9.6-11.5)
[2017-12-15] MEDS: SENNA/DOCUSATE TABLET PO SCH (08:32)
[2017-12-15] MEDS: ALLOPURINOL 300 MG TABLET PO SCH (08:32)
[2017-12-15] MEDS: SULFAMETH./TRIMETHOPRIM DS 800MG/160MG TABLET PO SCH ×2 (08:32→21:01)
[2017-12-15] MEDS: ABIRATERONE ACETATE 1000 MG PO SCH (08:33)
[2017-12-15] MEDS: LOSARTAN 50MG TABLET PO SCH (21:01)
[2017-12-15] MEDS: TERAZOSIN 5MG CAPSULE PO SCH (21:01)
[2017-12-15] MEDS: morphine SULFATE 10 MG/ML, 1ML IVPush PRN (22:01)
[2017-12-16] VITALS (9 sets, daily range): BP systolic 98–151; BP diastolic 51–68
[2017-12-16] MEDS: HYDROcodone/APAP 5/325 TABLET PO PRN ×2 (01:18→06:22)
[2017-12-16] MEDS: SODIUM CHLORIDE 0.9% 1,000 ML IV SCH ×2 (01:18→20:54)
[2017-12-16 05:35] LABS: MEAN CORPUSCULAR HEMOGLOBIN 31.1 pg (27.5-34.5); MEAN CORPUSCULAR HGB CONC 33.7 g/dL (33.2-36.2); MEAN CORPUSCULAR VOLUME 92.3 fL (81-97); PLATELET COUNT 234 x10^3/uL (130-400); RED BLOOD COUNT 2.25 x10^6/uL (4.38-5.82); RED CELL DISTRIBUTION WIDTH 16.6 % (9.4-14.8)
[2017-12-16 06:17] LABS: BASOPHILS # (AUTO) 0.01 x10^3/uL (0-0.1); BASOPHILS % (AUTO) 0 % (0-1); EOSINOPHILS % (AUTO) 1 % (1-7); LYMPHOCYTES # (AUTO) 0.88 x10^3/uL (1-3.4); LYMPHOCYTES % (AUTO) 7 % (22-44); MD SCAN; MONOCYTES # (AUTO) 0.94 x10^3/uL (0.2-0.8); MONOCYTES % (AUTO) 8 % (2-9); NEUTROPHILS # (AUTO) 10.36 x10^3/uL (1.8-6.8); NEUTROPHILS % (AUTO) 84 % (42-75)
[2017-12-16] MEDS ORDERED: CEFTRIAXONE PMX 2GM/50ML 50 ML IVPB ONE (07:30)
[2017-12-16] MEDS: ALLOPURINOL 300 MG TABLET PO SCH (08:39)
[2017-12-16] MEDS: ABIRATERONE ACETATE 1000 MG PO SCH (08:39)
[2017-12-16] MEDS: APIXABAN 2.5 MG TABLET PO SCH ×2 (08:40→21:00)
[2017-12-16] MEDS: SENNA/DOCUSATE TABLET PO SCH (08:40)
[2017-12-16] MEDS: HYDROcodone/APAP 10/325 MG TABLET PO PRN ×2 (17:27→22:12)
[2017-12-16] MEDS: LOSARTAN 50MG TABLET PO SCH (20:53)
[2017-12-16] MEDS: TERAZOSIN 5MG CAPSULE PO SCH (20:53)
[2017-12-17 03:40] VITALS: BP 172/80
[2017-12-17] MEDS: HYDROcodone/APAP 10/325 MG TABLET PO PRN ×3 (03:51→21:33)
[2017-12-17 05:25] LABS: BASOPHILS % (AUTO) 0 % (0-1); EOSINOPHILS # (AUTO) 0.08 x10^3/uL (0-0.4); EOSINOPHILS % (AUTO) 1 % (1-7); LYMPHOCYTES # (AUTO) 0.76 x10^3/uL (1-3.4); LYMPHOCYTES % (AUTO) 8 % (22-44); MD NO; MEAN CORPUSCULAR HEMOGLOBIN 30.3 pg (27.5-34.5); MEAN CORPUSCULAR HGB CONC 33.4 g/dL (33.2-36.2); MEAN CORPUSCULAR VOLUME 90.6 fL (81-97); MEAN PLATELET VOLUME 7.6 fL (7.4-10.4); MONOCYTES # (AUTO) 0.86 x10^3/uL (0.2-0.8); MONOCYTES % (AUTO) 8 % (2-9); NEUTROPHILS # (AUTO) 8.49 x10^3/uL (1.8-6.8); NEUTROPHILS % (AUTO) 83 % (42-75); PLATELET COUNT 266 x10^3/uL (130-400); RED BLOOD COUNT 2.52 x10^6/uL (4.38-5.82); RED CELL DISTRIBUTION WIDTH 17.5 % (9.4-14.8)
[2017-12-17 07:40] VITALS: BP 138/70
[2017-12-17] MEDS: ABIRATERONE ACETATE 1000 MG PO SCH (09:00)
[2017-12-17] MEDS ORDERED: CEFTRIAXONE 1,000 MG IM SCH (09:00)
[2017-12-17] MEDS: SENNA/DOCUSATE TABLET PO SCH (09:06)
[2017-12-17] MEDS: ALLOPURINOL 300 MG TABLET PO SCH (09:06)
[2017-12-17] MEDS: CEFTRIAXONE PMX 1GM/50ML 50 ML IV SCH (10:06)
[2017-12-17 10:25] LABS: OCCULT BLOOD POSITIVE (NEGATIVE)
[2017-12-17 12:29] VITALS: BP 131/67
[2017-12-17] MEDS ORDERED: FENTANYL PF 100 MCG/2ML ONE (15:04)
[2017-12-17] MEDS ORDERED: PROPOFOL 10 MG/ML, 20ML ONE (15:31)
[2017-12-17] MEDS ORDERED: MEPERIDINE/PF 25MG/0.5ML IVPush PRN (16:00)
[2017-12-17] MEDS ORDERED: LABETALOL 5MG/ML, 20ML IV PRN (16:00)
[2017-12-17] MEDS ORDERED: FENTANYL PF 100 MCG/2ML IV PRN (16:00)
[2017-12-17] MEDS ORDERED: METOCLOPRAMIDE 5 MG/ML, 2ML IV PRN (16:00)
[2017-12-17] MEDS ORDERED: HYDROmorphone 1 MG/ML, 1ML IV PRN (16:00)
[2017-12-17] MEDS ORDERED: HALOPERIDOL 5 MG/ML IV PRN (16:00)
[2017-12-17] MEDS ORDERED: hydrALAzine 20 MG/ML, 1ML IV PRN (16:00)
[2017-12-17] MEDS ORDERED: OXYcodone 5 MG/5 ML ORAL.SOL UDC PO PRN (16:00)
[2017-12-17] MEDS: PANTOPRAZOLE 20MG TABLET PO SCH (17:44)
[2017-12-17 19:08] VITALS: BP 150/77
[2017-12-17] MEDS: LOSARTAN 50MG TABLET PO SCH (21:33)
[2017-12-17] MEDS: TERAZOSIN 5MG CAPSULE PO SCH (21:33)
[2017-12-17 23:08] VITALS: BP 113/67
[2017-12-17 23:17] VITALS: BP 113/65
[2017-12-18 02:44] VITALS: BP 161/72
[2017-12-18] MEDS: SODIUM CHLORIDE 0.9% 1,000 ML IV SCH (02:59)
[2017-12-18] MEDS: HYDROcodone/APAP 10/325 MG TABLET PO PRN ×3 (02:59→16:22)
[2017-12-18] MEDS: PANTOPRAZOLE 20MG TABLET PO SCH (06:10)
[2017-12-18 06:44] VITALS: BP 141/80
[2017-12-18] MEDS ORDERED: PANTOPRAZOLE 40 MG IV IVPush SCH (07:00)
[2017-12-18 07:41] LABS: ANION GAP 7 mmol/L (5-15); CALCIUM 8.7 mg/dL (8.5-10.1); CHLORIDE 108 mmol/L (98-107); CREATININE 1.32 mg/dL (0.7-1.3)
[2017-12-18 08:04] LABS: BASOPHILS # (AUTO) 0.02 x10^3/uL (0-0.1); BASOPHILS % (AUTO) 0 % (0-1); EOSINOPHILS # (AUTO) 0.14 x10^3/uL (0-0.4); EOSINOPHILS % (AUTO) 2 % (1-7); LYMPHOCYTES % (AUTO) 11 % (22-44); MD NO; MEAN CORPUSCULAR HEMOGLOBIN 30.1 pg (27.5-34.5); MEAN CORPUSCULAR HGB CONC 33.1 g/dL (33.2-36.2); MEAN CORPUSCULAR VOLUME 90.9 fL (81-97); MEAN PLATELET VOLUME 7.1 fL (7.4-10.4); MONOCYTES # (AUTO) 0.78 x10^3/uL (0.2-0.8); MONOCYTES % (AUTO) 9 % (2-9); NEUTROPHILS # (AUTO) 6.51 x10^3/uL (1.8-6.8); NEUTROPHILS % (AUTO) 78 % (42-75); PLATELET COUNT 286 x10^3/uL (130-400); RED BLOOD COUNT 2.69 x10^6/uL (4.38-5.82); RED CELL DISTRIBUTION WIDTH 16.9 % (9.4-14.8)
[2017-12-18] MEDS: ALLOPURINOL 300 MG TABLET PO SCH (09:05)
[2017-12-18] MEDS: ABIRATERONE ACETATE 1000 MG PO SCH (09:05)
[2017-12-18] MEDS: SENNA/DOCUSATE TABLET PO SCH (09:06)
[2017-12-18] MEDS: CEFTRIAXONE PMX 1GM/50ML 50 ML IV SCH (10:00)
[2017-12-18 12:25] VITALS: BP 131/66
[2017-12-18] MEDS ORDERED: CEFD300C37 PO (12:39)
[2017-12-18] MEDS ORDERED: PANT40TA3 PO (12:39)
[2017-12-18] MEDS ORDERED: APIXABAN 5 MG TABLET PO SCH (21:00)
[2017-12-31] MEDS ORDERED: POLY17PO5 PO (19:18)
[2017-12-31] MEDS ORDERED: PRED5TAB PO (19:18)
[2017-12-31] MEDS ORDERED: VIT C PO (19:18)
[2017-12-31] MEDS ORDERED: [UNRECOGNIZED DRUG - OTHER] PO (19:18)
[2017-12-31] MEDS ORDERED: SODIUM CHLORIDE 0.9% (19:18)
[2017-12-31] MEDS ORDERED: CEFT1VIA13 IV (19:21)
[2017-12-31] MEDS ORDERED: LACT1CAP35 PO (19:24)
[2017-12-31] MEDS ORDERED: CALCIUM PO (19:27)
[2017-12-31] MEDS ORDERED: NITR100C56 PO (19:28)
[2017-12-31] MEDS ORDERED: SENN1TAB8 PO (19:29)
[2017-12-31] MEDS ORDERED: FERR325T18 PO (19:30)
[2018-01-02] MEDS ORDERED: MORP15TA3 PO (13:34)
[2018-01-02] MEDS ORDERED: MORP100S3 BC (13:34)
== END 2017-12-18 16:58 | DRG 853 ==
LOC: ED 03:51 → EDIP 05:36 → 4NOR 06:54
PROVIDERS: ADMIT Family Medicine; ATTEND Family Medicine
PROC: 2W6PXZZ Traction of Left Upper Leg (ICD-10-PCS; 2017-12-12)
PROC: 30233N1 Transfusion of Nonautologous Red Blood Cells into Peripheral Vein, Percutaneous Approach (ICD-10-PCS; 2017-12-12)
PROC: 0QS706Z Reposition Left Upper Femur with Intramedullary Internal Fixation Device, Open Approach (ICD-10-PCS; principal; 2017-12-12 14:00)
PROC: 0T2BX0Z Change Drainage Device in Bladder, External Approach (ICD-10-PCS; 2017-12-16)
PROC: 0DJ08ZZ Inspection of Upper Intestinal Tract, Via Natural or Artificial Opening Endoscopic (ICD-10-PCS; 2017-12-17)
DX: A41.9 Sepsis, unspecified organism (principal); S72.145A Nondisplaced intertrochanteric fracture of left femur, initial encounter for closed fracture; E43 Unspecified severe protein-calorie malnutrition; D68.9 Coagulation defect, unspecified; C79.9 Secondary malignant neoplasm of unspecified site; I50.30 Unspecified diastolic (congestive) heart failure; D62 Acute posthemorrhagic anemia; N39.0 Urinary tract infection, site not specified; K92.1 Melena; C61 Malignant neoplasm of prostate; Z80.9 Family history of malignant neoplasm, unspecified; Z82.49 Family history of ischemic heart disease and other diseases of the circulatory system; Z96.653 Presence of artificial knee joint, bilateral; Z87.11 Personal history of peptic ulcer disease; Z86.718 Personal history of other venous thrombosis and embolism; Z66 Do not resuscitate; Z93.59 Other cystostomy status; Z79.01 Long term (current) use of anticoagulants; W01.198A Fall on same level from slipping, tripping and stumbling with subsequent striking against other object, initial encounter; Y93.89 Activity, other specified; Y92.090 Kitchen in other non-institutional residence as the place of occurrence of the external cause; Y99.8 Other external cause status; I11.0 Hypertensive heart disease with heart failure; D69.6 Thrombocytopenia, unspecified; I35.0 Nonrheumatic aortic (valve) stenosis; N28.9 Disorder of kidney and ureter, unspecified; G89.29 Other chronic pain; T83.091A Other mechanical complication of indwelling urethral catheter, initial encounter; Y84.6 Urinary catheterization as the cause of abnormal reaction of the patient, or of later complication, without mention of misadventure at the time of the procedure; Z68.33 Body mass index [BMI] 33.0-33.9, adult
CPT/HCPCS: 36415; 71045; 75984; 76000; 80048; 80053; 81001; 82272; 82274; 85014; 85018; 85025; 85610; 85730; 86850; 86900; 86923; 87077; 87086; 87186; 93005; 96374; 96376; 99285; C1713; G0378; J0696; J1170; J2405; J2704; J3010; C9113; J0330; J1720; J2270; J2370; J7030; J7512; P9016

== ENCOUNTER 2017-12-27 09:47 | Emergency (ER) | payer OTHER ==
[~2017-12-27] VITALS: Ht 175.3 cm; Wt 94.0 kg
[~2017-12-27 09:47] MED LIST changes: +APIX5TAB PO; +DICL100T PO; +PANT40TA3 PO
[2017-12-27 10:25] LABS: BASOPHILS # (AUTO) 0.27 x10^3/uL (0-0.1); BASOPHILS % (AUTO) 3 % (0-1); EOSINOPHILS # (AUTO) 0.32 x10^3/uL (0-0.4); EOSINOPHILS % (AUTO) 3 % (1-7); LYMPHOCYTES # (AUTO) 0.62 x10^3/uL (1-3.4); LYMPHOCYTES % (AUTO) 6 % (22-44); MD NO; MEAN CORPUSCULAR HEMOGLOBIN 29.1 pg (27.5-34.5); MEAN CORPUSCULAR HGB CONC 32.5 g/dL (33.2-36.2); MEAN CORPUSCULAR VOLUME 89.7 fL (81-97); MEAN PLATELET VOLUME 7.3 fL (7.4-10.4); MONOCYTES # (AUTO) 0.65 x10^3/uL (0.2-0.8); MONOCYTES % (AUTO) 6 % (2-9); NEUTROPHILS # (AUTO) 8.97 x10^3/uL (1.8-6.8); NEUTROPHILS % (AUTO) 83 % (42-75); PLATELET COUNT 522 x10^3/uL (130-400); RED CELL DISTRIBUTION WIDTH 16.1 % (9.4-14.8)
[2017-12-27] MEDS ORDERED: MORPHINE SULFATE 4 MG/ML, 1ML IVPush PRN (10:30)
[2017-12-27] MEDS ORDERED: SODIUM CHLORIDE FLUSH 10ML SYR IVF ONE (10:30)
[2017-12-27] MEDS ORDERED: SODIUM CHLORIDE 0.9% 1,000ML IVBOLUS ONE (10:30)
[2017-12-27 10:35] LABS: INTERNATIONAL NORMALIZED RATIO 1.09 (0.93-1.1); PROTHROMBIN TIME 11.3 Seconds (9.6-11.5)
[2017-12-27 10:38] LABS: ALBUMIN 2.2 g/dL (3.4-5.0); ANION GAP 8 mmol/L (5-15); CALCIUM 9.2 mg/dL (8.5-10.1); CHLORIDE 105 mmol/L (98-107)
[2017-12-27 10:44] LABS: ALANINE AMINOTRANSFERASE 13 U/L (12-78); ALKALINE PHOSPHATASE 136 U/L (45-117); BILIRUBIN,TOTAL 0.6 mg/dL (0.2-1.0); CREATININE 1.95 mg/dL (0.7-1.3); TOTAL PROTEIN 6.6 g/dL (6.4-8.2); TROPONIN I < 0.015 ng/mL (0.000-0.045)
[2017-12-27 12:31] LABS: MICROSCOPIC INDICATED
[2017-12-27 12:32] LABS: CULTURE INDICATED? YES
[2017-12-27] MEDS ORDERED: FAMO-79 PO (12:32)
[2017-12-27] MEDS ORDERED: FURO40TA6 PO (12:32)
[2017-12-27] MEDS ORDERED: POTA10TA11 PO (12:32)
[2017-12-27 13:02] VITALS: BP 133/59
[2017-12-31] MEDS ORDERED: POLY17PO5 PO (19:18)
[2017-12-31] MEDS ORDERED: [UNRECOGNIZED DRUG - OTHER] PO (19:18)
[2017-12-31] MEDS ORDERED: PRED5TAB PO (19:18)
[2017-12-31] MEDS ORDERED: SODIUM CHLORIDE 0.9% (19:18)
[2017-12-31] MEDS ORDERED: VIT C PO (19:18)
[2017-12-31] MEDS ORDERED: CEFT1VIA13 IV (19:21)
[2017-12-31] MEDS ORDERED: LACT1CAP35 PO (19:24)
[2017-12-31] MEDS ORDERED: CALCIUM PO (19:27)
[2017-12-31] MEDS ORDERED: NITR100C56 PO (19:28)
[2017-12-31] MEDS ORDERED: SENN1TAB8 PO (19:29)
[2017-12-31] MEDS ORDERED: FERR325T18 PO (19:30)
[2018-01-02] MEDS ORDERED: MORP100S3 BC (13:34)
[2018-01-02] MEDS ORDERED: MORP15TA3 PO (13:34)
== END 2017-12-27 13:39 | disposition home or self-care (01) ==
LOC: ED 10:17
DX: T83.511A Infection and inflammatory reaction due to indwelling urethral catheter, initial encounter (principal); D64.9 Anemia, unspecified; K92.1 Melena; Z79.01 Long term (current) use of anticoagulants; G89.29 Other chronic pain; E78.5 Hyperlipidemia, unspecified; I11.0 Hypertensive heart disease with heart failure; I50.9 Heart failure, unspecified; Z86.718 Personal history of other venous thrombosis and embolism
CPT/HCPCS: 36415; 51700; 71045; 80053; 81001; 83605; 83735; 84484; 85025; 85610; 85730; 86850; 86900; 86923; 87077; 87086; 87186; 93005; 96360; 96361; 99285; J7030; 36430